=== PATIENT | female | born 1975 | race Caucasian/White ===

== ENCOUNTER 2020-09-21 09:45 | Emergency (ER) | payer SELFPAY ==
--- NOTE | 2020-09-21 10:15 | TELE ---
HPI Do you have fever,cough or shortness of breath?: No - General Reason For Visit: COVID - History of Present Illness 09/21/20 10:12 Patient is a 44-year-old female with no past medical history who presents to a virtual urgent care visit for Covid testing. She states she has been exposed to a coworker who tested positive. She states she was exposed 10 days ago when she saw him last. She denies any fevers or chills. She does admit to waking up with a headache this morning. She is a smoker and states she always has a slight cough, but does admit to having a cough. She denies any shortness of breath or chest pain. She denies any recent travel outside of [facility] within the last 30 days, or outside of [facility] within the last 15 days. She denies any allergies to medications. Review of Systems - Review of Systems Comments:: 09/21/20 10:13 - Review of Systems Able to Perform ROS?: Yes Constitutional: No: Fever, Chills, Loss of Appetite, Night Sweats, Weakness; positive: Covid test HEENTM: No: Eye Pain, Vision changes, Ear Pain, Throat Pain, Throat Swelling, Mouth Pain, Difficulty Swallowing Respiratory: No: Shortness of Breath, Wheezing, Sputum Production; positive: Cough Cardiac (ROS): No: Chest Pain, Chest Tightness, Palpitations, Irregular Heart Beat, Edema ABD/GI: No: Nausea, Vomiting, Abdominal Pain, Diarrhea : No Dysuria, No Hematuria, No Frequency, No Urgency Musculoskeletal: No: Muscle Pain, Back Pain, Joint Pain, Muscle Weakness, Neck Pain Integumentary: No: Lesions, Rash Neurological: No: Numbness, Tingling, Weakness, Speech Difficulties; positive: Headache *Physical Exam - Physical Exam 09/21/20 10:13 - Physical Exam General Appearance: Nourished, Appropriately Dressed, No Distress HEENT: EOMI, Normal Voice, Hearing Grossly Normal Neck: No Decreased range of motion Respiratory/Chest: Normal chest excursion appreciated, No Accessory Muscle Use Gastrointestinal/Abdominal: No distention Musculoskeletal: Normal Inspection Integumentary: Normal Color, Dry. No Rash Neurologic: client services director II-XII NML intact, Fully Oriented, Alert, Normal Mood/Affect, Normal Response - Medical Decision Making 11/02/20 10:13 Assessment: Patient is a 44-year-old female with a recent exposure to a Covid positive coworker who complains of a headache this morning. She also admits to having a slight cough which she attributes to being a smoker. Plan: -Covid swab ordered -Patient to proceed to our [facility] for Covid testing -Covid counseling given, isolation precautions reviewed -Patient understands and agrees with this treatment and plan Discharge Diagnosis at time of Disposition: Cough, Close exposure to COVID-19 virus, Counseled about COVID-19 virus infection Headache Qualifiers: Headache type: other headache syndrome Qualified Code(s): G44.89 - Other hea dache syndrome - Referrals Follow-up Referral(s): Don Power MD [Primary Care Provider] - - Patient Instructions Discharge Instructions: [facility] - Coronavirus Instructions, [facility] COVID-19 Isolation Protocol Additional Discharge Instructions: You were seen via a telehealth visit and tested for COVID today. You should follow isolation precautions as per [facility] guidelines. Thank you for participating in our telehealth medicine program. If you have any worsening symptoms such as high fever, shaking chills, profuse vomiting or any other worsening symptoms you should go to your local emergency department immediately or follow up with your primary care doctor immediately. If you become symptomatic: Take Tylenol 650 mg every 6 hours as needed for fever or pain. You may take Robitussin or other [id number] cough syrup. Follow the dosing instructions on the bottle. Warm tea, honey, and salt water gargles may help your symptoms. Please take precautions and self quarantine for 2 weeks and follow-up with your primary care doctor and the Department of Health. Return to the nearest emergency department for shortness of breath, difficulty breathing, chest pain, or if you have any changes in your symptoms. - Discharge Disposition: HOME Condition at time of Disposition: Stable
== END 2020-09-21 10:15 | disposition home or self-care (01) ==
LOC: JVIRT 09:45
DX: R05 Cough (principal); G44.89 Other headache syndrome; Z03.818 Encounter for observation for suspected exposure to other biological agents ruled out
CPT/HCPCS: C9803; Q3014-GT; U0003